=== PATIENT | male | born 1970 | race Caucasian/White ===

== ENCOUNTER → 2021-08-21 | Outpatient (CLI) | payer BC | LOC: KOH-I 09:41 | DX: M79.604 Pain in right leg (principal); M79.605 Pain in left leg; E78.00 Pure hypercholesterolemia, unspecified | CPT/HCPCS: 76700; 93970 ==

== ENCOUNTER → 2021-09-20 | Outpatient (CLI) | payer BC | LOC: KOH-I 09-16 08:00 | DX: R22.42 Localized swelling, mass and lump, left lower limb (principal) | CPT/HCPCS: 73700 ==